=== PATIENT | female | born 1970 | race Caucasian/White ===

== ENCOUNTER 2016-05-21 07:34 | Emergency (ER) | payer BC ==
[~2016-05-21] VITALS: Ht 157.5 cm; Wt 75.8 kg
[~2016-05-21 07:34] MED LIST: CALC500C3 PO; CHOL100010 PO; CRAN1CAP15 PO; CYAN10005 PO; LORA-741 PO; MULT-506 PO; ZOLP5TAB PO
[2016-05-21 07:39] VITALS: TEMP 36.5; Ht 157.5 cm; Wt 75.8 kg
--- NOTE | 2016-05-21 07:54 | EMERGENCY ROOM VISIT NOTE ---
History Report prepared by Nayan: Manuel Borjas Under the Supervision of: Dr. Castro Pickett M.D. First contact with patient: 07:44 Chief Complaint: FLANK PAIN Stated Complaint: LOWER FLANK PAIN History of Present Illness The patient is a 45 year old female who presents to the Emergency Room with complaints of persistent abdominal pain that started 4 hours ago. The patient notes that the discomfort radiates to her left flank and also complains of nausea. The patient woke up with the discomfort in the middle of the night. She has a history of ovarian cysts and notes her symptoms feel similar to the discomfort she has experienced in the past with the cysts. She denies urinary symptoms, difficulty moving her bowels, or fever at this time. The patient notes that she had been controlling the cysts with control. However, she has been off the control for awhile. She had her menstrual cycle last week. Source of History: patient Onset: 4 hours ago Position: abdomen Timing: other (persistent) Associated Symptoms: + nausea, No fevers, No urinary symptoms Note: Other associated symptoms: radiation to left flank Denies: difficulty moving her bowels Review of Systems All systems have been listed, reviewed, and are negative other than those previously mentioned. Please see Additional Medical History Sheet. Past Medical & Surgical Medical Problems: (1) Cervicalgia (2) Diaphragmatic hernia (3) Esophageal reflux (4) H/O bariatric surgery (5) H/O tubal ligation Family History Heart disease Kidney stones Stroke Social History Smoking Status: Never Smoker Marital Status: in relationship Housing Status: lives with significant other Occupation Status: employed Current/Historical Medications Scheduled Cholecalciferol (D 1000), 1,000 MG PO DAILY Cranberry-Vitamin C (Cranberry/Vitamin C), 1 CAP PO DAILY Cyanocobalamin (Vitamin B-12), 5,000 MCG PO WK Dicyclomine Hcl (Bentyl), 20 MG PO Q6H Multivitamin (Multivitamin), 1 TAB PO DAILY Zolpidem Tartrate (Ambien), 5 MG PO HS PRN Scheduled PRN Lorazepam (Ativan), 0.25 MG PO Q6H PRN for tremors Miscellaneous Medications Calcium Carbonate (Antacid) (Antacid) Allergies Coded Allergies: Bupropion (Verified Allergy, Intermediate, ELEVATED BP, 05/21/16) Moxifloxacin (Verified Allergy, Mild, NAUSEA AND VOMITING, 05/21/16) Penicillins (Verified Allergy, Unknown, 05/21/16) Procaine (Unverified Allergy, Unknown, ., 05/21/16) Physical Exam Vital Signs Date Time Temp Pulse Resp B/P Pulse Ox O2 Delivery O2 Flow Rate FiO2 05/21/16 11:56 84 16 98/72 99 05/21/16 10:25 73 16 124/66 97 Room Air 05/21/16 09:19 97 Room Air 05/21/16 09:10 81 16 125/71 05/21/16 07:39 36.5 77 17 119/81 98 Room Air Physical Exam GENERAL: Patient awake, alert, oriented x 3. Patient follows commands. Patient does not appear toxic. Patient is adequately hydrated and well- nourished. SKIN: No erythema, pallor, cyanosis or rash HEENT: Normal head, pupils equal, reactive to light and accommodation. Ears normal. Neck: Without adenopathy, no neck vein distention. LUNGS: Clear to auscultation. No wheezes, no rales, no rhonchi. HEART: No murmurs. No gallops. No rubs ABDOMEN: No masses, no rebound, no hepatomegaly or splenomegaly. Vague left lower quadrant tenderness, no point tenderness, bowel sounds present. EXTREMITIES: No signs of trauma. No pedal or pretibial edema. No calf or thigh tenderness. NEUROLOGIC: Cranial nerves II-XII within normal limits. No gross motor sensory function deficits. Medical Decision & Procedures ER Provider Diagnostic Interpretation: US results are interpretations by the radiologist and per my review. PELVIC ULTRASOUND CLINICAL HISTORY: Left lower quadrant pain. Possible torsion. COMPARISON STUDY: Pelvic ultrasound July 06, 2015. TECHNIQUE: Transabdominal and transvaginal sonography of the pelvis was performed. FINDINGS: The uterus measures 8.2 x 4.1 x 4.2 cm. The endometrium measures 5 mm in thickness. A 1.5 cm hypoechoic lesion within the uterine fundus is similar to exam of July 06, 2015. This suggests a small fibroid. The ovaries are sonographically normal. The right ovary measures 3.2 x 1.3 x 2.9 cm and left measures 3.1 x 1.6 x 2 cm. There is color flow within each ovary. There is no free fluid. IMPRESSION: 1. Unremarkable sonographic appearance of the ovaries. No evidence of ovarian torsion by sonography. 2. No significant change in a small fundal fibroid. Electronically signed by: Allen Duncan M.D. 05/21/2016 9:15 AM Dictated Date/Time: 05/21/2016 9:12 AM Laboratory Results 05/21/16 08:00 Red Blood Count 3.78, Mean Corpuscular Volume 95.0, Mean Corpuscular Hemoglobin 33.3, Mean Corpuscular Hemoglobin Concent 35.1, Mean Platelet Volume 8.7, Neutrophils (%) (Auto) 65.2, Lymphocytes (%) (Auto) 26.9, Monocytes (%) (Auto) 6.1, Eosinophils (%) (Auto) 1.3, Basophils (%) (Auto) 0.3, Neutrophils # (Auto) 3.88, Lymphocytes # (Auto) 1.60, Monocytes # (Auto) 0.36, Eosinophils # (Auto) 0.08, Basophils # (Auto) 0.02 05/21/16 08:00 Test 05/21/16 08:00 White Blood Count 5.95 K/uL (4.8-10.8) Red Blood Count 3.78 M/uL (4.2-5.4) Hemoglobin 12.6 g/dL (12.0-16.0) Hematocrit 35.9 % (37-47) Mean Corpuscular Volume 95.0 fL (80-100) Mean Corpuscular Hemoglobin 33.3 pg (25-34) Mean Corpuscular Hemoglobin Concent 35.1 g/dl (32-36) Platelet Count 222 K/uL (130-400) Mean Platelet Volume 8.7 fL (7.4-10.4) Neutrophils (%) (Auto) 65.2 % Lymphocytes (%) (Auto) 26.9 % Monocytes (%) (Auto) 6.1 % Eosinophils (%) (Auto) 1.3 % Basophils (%) (Auto) 0.3 % Neutrophils # (Auto) 3.88 K/uL (1.4-6.5) Lymphocytes # (Auto) 1.60 K/uL (1.2-3.4) Monocytes # (Auto) 0.36 K/uL (0.11-0.59) Eosinophils # (Auto) 0.08 K/uL (0-0.5) Basophils # (Auto) 0.02 K/uL (0-0.2) RDW Standard Deviation 44.2 fL (36.4-46.3) RDW Coefficient of Variation 12.8 % (11.5-14.5) Immature Granulocyte % (Auto) 0.2 % Immature Granulocyte # (Auto) 0.01 K/uL (0.00-0.02) Urine Color YELLOW Urine Appearance CLOUDY (CLEAR) Urine pH 5.0 (4.5-7.5) Urine Specific [place] 1.024 (1.000-1.030) Urine Protein NEG (NEG) Urine Glucose (UA) NEG (NEG) Urine Ketones NEG (NEG) Urine Occult Blood NEG (NEG) Urine Nitrite NEG (NEG) Urine Bilirubin NEG (NEG) Urine Urobilinogen NEG (NEG) Urine Leukocyte Esterase NEG (NEG) Urine WBC (Auto) 0 /hpf (0-5) Urine RBC (Auto) 0-4 /hpf (0-4) Urine Hyaline Casts (Auto) 1-5 /lpf (0-5) Urine Epithelial Cells (Auto) 5-10 /lpf (0-5) Urine Bacteria (Auto) 1+ (NEG) Urine Crystals URIC ACID (NONE PRSENT) Urine Mucus PRESENT (NONE PRSENT) Urine Test NEG (NEG) Anion Gap 11.0 mmol/L (3-11) Est Creatinine Clear Calc Drug Dose 94.1 ml/min Estimated GFR () 117.2 Estimated GFR (Non- 101.1 BUN/Creatinine Ratio 21.1 (10-20) Calcium Level 8.2 mg/dl (8.5-10.1) Laboratory results as stated above per my review. Medications Administered Medications (Trade) Dose Ordered Sig/Christina Route Start Time Stop Time Status Last Admin Dose Admin Morphine Sulfate (MoRPHine SULFATE INJ) 8 mg Q1H PRN IV 05/21/16 08:00 05/21/16 12:06 DC 05/21/16 08:06 8 MG Ondansetron HCl 4 mg 4 mg Q1HWA PRN IV 05/21/16 08:00 05/21/16 12:06 DC 05/21/16 08:05 4 MG Pantoprazole Sodium/Syringe (Protonix Inj/ Syringe) 10 ml @ 5 mls/min NOW ONCE IV 05/21/16 08:45 05/21/16 08:46 DC 05/21/16 09:11 5 MLS/MIN Morphine Sulfate (MoRPHine SULFATE INJ) 4 mg STK-MED ONCE .ROUTE 05/21/16 09:42 05/21/16 09:43 DC 05/21/16 09:40 4 MG ED Course 0746: Past medical records reviewed. The patient was evaluated in room B5. A complete history and physical examination was performed. 0800: Ordered Zofran Inj 4 mg IV, Morphine Sulfate 8 mg IV. 0845: Ordered Pantoprazole Sodium 40 mg. Syringe 10 ml @ 5 mls/min IV. 0942: Ordered Morphine Sulfate 4 mg .ROUTE. 1046: Upon reevaluation, the patient appeared to have improvement of her symptoms. I discussed today's findings with her. She verbalized agreement of the treatment plan. The patient was discharged home. Medical Decision Differential diagnoses include ovarian cyst, ovarian torsion, PID, kidney stone , UTI, or pyelonephritis. On examination the patient has nonspecific abdominal findings. She does not have an acute abdomen. Labs were evaluated. Please see above. Ultrasound does not reveal an ovarian torsion or enlarged ovaries. The patient initially was given morphine for her pain but then was observed for at least one hour after the last injection and the pain did not appear to be increasing. The patient has nonspecific abdominal pain and will be started on a short course of Bentyl. The patient was encouraged to follow-up with her family physician. Impression Primary Impression: Left lower quadrant abdominal pain of unknown etiology Scribe Attestation The scribe's documentation has been prepared under my direction and personally reviewed by me in its entirety. I confirm that the note above accurately reflects all work, treatment, procedures, and medical decision making performed by me. Departure Information Dispostion Home / Self-Care Prescriptions Dicyclomine Hcl (BENTYL) 20 Mg Tab 20 MG PO Q6H, #12 TAB Prov: Castro Pickett M.D. 05/21/16 Referrals Yakov Norris M.D. (PCP) Forms HOME CARE DOCUMENTATION FORM, IMPORTANT VISIT INFORMATION Patient Instructions My [facility] Additional Instructions 1 Bentyl every 6 hours as needed for abdominal pain. Drink plenty of fluids. Follow-up with your family physician within the next 7 days. Return here sooner if your pain is getting worse or you're unable to hold down liquids.
[2016-05-21] MEDS ORDERED: MoRPHine SULFATE 10 MG/ML CARP/VIAL IV PRN (08:00)
[2016-05-21] MEDS ORDERED: ONDANSETRON INJ 2 MG/ML 2 ML VIAL IV PRN (08:00)
[2016-05-21 08:16] LABS: BASO % 0.3 %; BASO ABS # 0.02 K/uL (0-0.2); COMPLETE YES; EOS % 1.3 %; HEMATOCRIT 35.9 % (37-47); IG% 0.2 %; LYMPH % 26.9 %; MEAN CORPUSCULAR HEMOGLOBIN 33.3 pg (25-34); MEAN CORPUSCULAR HGB CONC 35.1 g/dl (32-36); MEAN PLATELET VOLUME 8.7 fL (7.4-10.4); MONO % 6.1 %; NEUT % 65.2 %; PLATELET COUNT 222 K/uL (130-400); RED BLOOD COUNT 3.78 M/uL (4.2-5.4); WHITE BLOOD COUNT 5.95 K/uL (4.8-10.8)
[2016-05-21 08:25] LABS: URINE APPEARANCE CLOUDY (CLEAR); URINE BILIRUBIN NEG (NEG); URINE COLOR YELLOW; URINE NITRITE NEG (NEG); URINE SPECIFIC GRAVITY 1.024 (1.000-1.030); UROBILINOGEN NEG (NEG)
[2016-05-21 08:28] LABS: MANUAL MICROSCOPIC REQUIRED? NO; REVIEW REQ? YES
[2016-05-21 08:34] LABS: BUN/CREATININE RATIO 21.1 (10-20); CALCIUM 8.2 mg/dl (8.5-10.1); CREATININE 0.72 mg/dl (0.60-1.20); POTASSIUM 3.9 mmol/L (3.5-5.1)
[2016-05-21 08:37] LABS: URINE MUCUS PRESENT (NONE PRSENT)
[2016-05-21 08:40] LABS: ZZUR CULT IF INDIC CLEAN CATCH YES
[2016-05-21] MEDS ORDERED: PANTOprazole INJ 40 MG in SYRINGE 0 ML IV ONE (08:45)
--- NOTE | 2016-05-21 09:18 | DIAGNOSTIC IMAGING REPORT ---
PELVIC ULTRASOUND CLINICAL HISTORY: Left lower quadrant pain. Possible torsion. COMPARISON STUDY: Pelvic ultrasound July 06, 2015. TECHNIQUE: Transabdominal and transvaginal sonography of the pelvis was performed. FINDINGS: The uterus measures 8.2 x 4.1 x 4.2 cm. The endometrium measures 5 mm in thickness. A 1.5 cm hypoechoic lesion within the uterine fundus is similar to exam of July 06, 2015. This suggests a small fibroid. The ovaries are sonographically normal. The right ovary measures 3.2 x 1.3 x 2.9 cm and left measures 3.1 x 1.6 x 2 cm. There is color flow within each ovary. There is no free fluid. IMPRESSION: 1. Unremarkable sonographic appearance of the ovaries. No evidence of ovarian torsion by sonography. 2. No significant change in a small fundal fibroid. Electronically signed by: Allen Duncan M.D. 05/21/2016 9:15 AM Dictated Date/Time: 05/21/2016 9:12 AM
[2016-05-21 09:19] VITALS: O2SAT 97
[2016-05-21] MEDS ORDERED: CHOL100041 PO (09:27)
[2016-05-21] MEDS ORDERED: CALC500C2 (09:27)
[2016-05-21] MEDS ORDERED: CRAN1CAP3 PO (09:27)
[2016-05-21] MEDS ORDERED: MoRPHine SULFATE 4 MG/ML 1 ML CARP\\VIAL ONE (09:42)
[2016-05-21] MEDS ORDERED: DICY20TA35 PO (11:26)
[2016-05-21 11:56] VITALS: BP 98/72; PULSE 84; O2SAT 99
== END 2016-05-21 11:57 | disposition home or self-care (01) ==
LOC: C.EDB 07:36
DX: R10.32 Left lower quadrant pain (principal); K21.9 Gastro-esophageal reflux disease without esophagitis; Z98.84 Bariatric surgery status; Z98.51 Tubal ligation status; Z79.899 Other long term (current) drug therapy; Z88.0 Allergy status to penicillin; Z88.8 Allergy status to other drugs, medicaments and biological substances; Z82.49 Family history of ischemic heart disease and other diseases of the circulatory system; Z84.1 Family history of disorders of kidney and ureter; Z82.0 Family history of epilepsy and other diseases of the nervous system

== ENCOUNTER → 2016-10-24 | Outpatient (CLI) | payer BC ==
[~2016-10-24] MED LIST changes: +CALC500C2; -CALC500C3 PO; -CHOL100010 PO; +CHOL100041 PO; -CRAN1CAP15 PO; +CRAN1CAP3 PO
[2016-10-27 12:28] LABS: CHLAMYDIA TRACH RNA*** NOT DETECTED (NOT DETECTED); GC (NEIS GONORRHOEAE)RNA** NOT DETECTED (NOT DETECTED); HERPES SIMPLEX CULT SOURCE GENITAL-VAGINAL; HERPES SIMPLEX VIRUS CULT ISOLATED (NOT ISOLATED)
[2016-10-30 10:38] LABS: HSVTYPE1REFLEX ONLY!DON'T ORDR ISOLATED (NOT ISOLATED); HSVTYPE2REFLEX ONLY!DON'T ORDR NOT ISOLATED (NOT ISOLATED)
[2016-10-31 09:29] LABS: HERPES SIMPLEX AB IGG-2 < 0.90 INDEX (< 0.90); HSV1 AB IGM Negative (Negative); HSV2 AB IGM Negative (Negative)
== END | disposition home or self-care (01) ==
LOC: C.LAB1850 14:21
PROVIDERS: ATTEND Obstetrics & Gynecology
DX: N76.2 Acute vulvitis (principal)